=== PATIENT | female | born 1970 | race Caucasian/White ===

== ENCOUNTER 2024-08-24 09:47 | Observation (INO) ==
--- NOTE | 2024-08-24 10:01 | Emergency Department Note ---
Impression & Plan Acute right flank pain, UTI (urinary tract infection), Hypercalcemia ED Provider Note CHIEF COMPLAINT: Kidney stone HISTORY OF PRESENTING ILLNESS: This 54-year-old female patient presents emergency department for evaluation of a possible kidney stone. The patient thought she was getting a UTI because she started with urinary pressure yesterday. However, now she has blood in her urine as well as 2/10 right sided back pain. She does have a history of kidney stones. She denies any fevers. Denies nausea or vomiting. Denies chest pain or SOB compared to her baseline SOB with activity. Denies problems with her BMs. REVIEW OF SYSTEMS: See HPI for pertinent positives and pertinent negatives. ALLERGIES: NKDA MEDICATIONS: See below PAST MEDICAL HISTORY: See below PHYSICAL EXAM: VITALS: Vitals are noted on the nurse's note and reviewed by myself. GENERAL: Non toxic, in no acute distress, non-diaphoretic. SKIN: Capillary refill <2 sec. EYES: PERRLA. EOMI. Conjunctivae without injection, sclerae without icterus. NOSE: Patent without discharge. MOUTH: Mucous membranes moist. Uvula midline. Airway patent. NECK: Supple without nuchal rigidity. HEART: Regular rate and rhythm without murmurs gallops or rubs. LUNGS: Clear to auscultation bilaterally without wheezes, rales or rhonchi. No retractions or accessory muscle use. ABDOMEN: Positive bowel sounds x 4. Normal tympanic percussion. Soft, nontender to palpation. No masses or hepatosplenomegaly. Desouza sign negative. No CVA tenderness. No guarding, rigidity, or rebound tenderness. No focal RLQ or LLQ tenderness. NEURO: Patient was alert and oriented. No focal neurological deficits. DIFFERENTIAL DIAGNOSIS: Differential diagnosis includes hepatitis, pancreatitis, cholecystitis, cholelithiasis, appendicitis, kidney stone, pyelonephritis, UTI, gastritis, gastroenteritis, mesenteric adenitis, obstruction, constipation, hernia, abdominal abscess, perforation, diverticulitis, IBD, ischemic colitis, abdominal aortic aneurysm, , ectopic , ovarian cyst, ovarian torsion, acute salpingitis, or others. ED COURSE AND MEDICAL DECISION MAKING: MEDICATIONS GIVEN: 1 L normal saline solution bolus. Toradol 10 mg IV. Rocephin 2 g IV. MONITOR: Continuous school social worker: Order was placed for continuous school social worker. Patient was placed on the school social worker and continuous pulse ox. Patient was noted to be in normal sinus rhythm at an initial rate of 90 bpm per my interpretation. EKG: EKG was interpreted by myself as normal sinus rhythm at 87 bpm with no acute ST or T wave changes. INTERPRETATION OF LABS: I interpreted the labs with full lab results as below in the lab section of this note. Laboratory results pertinent to the emergent complaint are discussed in the MDM section below. The patient was advised to follow up with their PCP and/or specialist(s) for further outpatient monitoring and management of any abnormal results. INTERPRETATION OF IMAGING: Imaging studies were interpreted by myself and read by radiology as per the imaging section of this note. The patient was advised to follow up with their PCP and/or specialist(s) for further outpatient management of any non-emergent abnormal findings. CT scan of the abdomen and pelvis with IV contrast shows bladder wall thickening with adjacent stranding which could be related to cystitis. There is a duplicated right renal collecting system. Right nephrolithiasis, but no ureteral calculi or hydronephrosis. Hepatic steatosis. CONSULTATIONS: On-call hospitalist [facility] SUMMARY: I examined the patient. The patient started with urinary pressure and feeling like she had a UTI last night. She then noticed blood in her urine this morning as well as 2/10 right sided back pain. She has a history of kidney stones and became concerned. On exam, the patient has no abdominal tenderness to palpation or CVA tenderness, but states that she feels the pain in her right flank. An IV lock was placed and labs were drawn. The patient was given 1 L normal saline solution bolus and Toradol 10 mg IV with some improvement of her pain. White blood cell count elevated at 14.84. Hemoglobin normal at 15.9. Platelet count normal at 396. Glucose 166, calcium 12.2, AST 58, ALT 98, and alk phos 114. CMP otherwise normal. Magnesium normal. Lipase normal. Lactate and procalcitonin were normal. Urinalysis with 3+ protein, trace ketones, 3+ blood, 2+ leukocyte esterase, greater than 50 white blood cells, and greater than 20 red blood cells. No epithelial cells. Urine culture is pending. CT scan of the abdomen and pelvis with IV contrast shows bladder wall thickening with adjacent stranding which could be related to cystitis. There is a duplicated right renal collecting system. Right nephrolithiasis, but no ureteral calculi or hydronephrosis. Hepatic steatosis. The patient had infiltration of her IV site while getting the IV contrast dye. I examined the area and there is some inflammation, but she is not significantly tender to palpation. The patient was given a warm compress to place on the area. The patient was advised that she will need to watch this area closely for signs of infection or possible development of a blood clot. The patient's white blood cell count is elevated and she has right flank pain in addition to the cystitis and UTI. There is concern for possible early pyelonephritis that is not seen on CT scan. The patient had blood cultures drawn and she was given Rocephin 2 g IV. The patient also has apparent new onset hypercalcemia and states that she has not been told that she has had elevated calcium levels in the past. Upon review of our records, the patient had a calcium level of 11.3 in 2019, but no blood work in our system since that time. Her level today is 12.2. I had a meaningful discussion about this patient with Dr. Matos who agrees with my assessment and the treatment plan. Due to the concern for possible early pyelonephritis as well as new onset hypercalcemia, admission was discussed and the patient was agreeable. I spoke with the on-call hospitalist who agreed to admit the patient for further evaluation and treatment. Please refer to their dictation for further details. A PTH level and repeat calcium level were drawn at the same time and day Vitamin D level was obtained. These tests were still pending at the time of transfer of care. The patient's care was transferred in stable condition. DIAGNOSIS: Right flank pain with UTI and leukocytosis - concern for early pyelonephritis Hypercalcemia Past Med/Surg History Problem List (Updated 08/24/24 @ 18:42 by Lorie Stringer PA-C) Hypercalcemia (Acute) Acute right flank pain (Acute) UTI (urinary tract infection) (Acute) Calculus of right kidney Acid reflux Hypertension Right ureteral stone Medical History Acid reflux Hypertension Surgical History Hx of tonsillectomy Hx of tubal ligation Family History Mother Breast cancer Hypertension Brother Hypertension Social History Smoking Status: Never smoker Tobacco Type: Cigarettes Hx Alcohol Use: Yes Alcohol type: beer Hx Substance Use: Yes Last Used Substance: Days (ago) Preferred Language: Mohawk Communication Ability: Effective Current Living Situation: Significant Other Feels Safe at Home: Yes Safety Concerns: Feels Safe At This Time Assistive Devices: Glasses Allergies Allergies Allergy/AdvReac Type Severity Reaction Status Date / Time No Known Allergies Allergy Unverified 01/18/20 13:52 Home Meds Home Medications Medication Instructions Recorded Confirmed omeprazole 20 mg capsule,delayed 20 mg PO HS 01/12/20 08/24/24 release lisinopril 20 mg tablet 20 mg PO HS 08/24/24 08/24/24 sertraline 25 mg tablet 25 mg PO HS 08/24/24 08/24/24 spironolactone 25 mg tablet 25 mg PO HS 08/24/24 08/24/24 Results & Data (ED) Vital Signs Vital Signs - 24 hr 08/24/24 09:51 08/24/24 10:23 08/24/24 11:28 Temperature 36.8 C Temperature Source Oral Pulse Rate 101 H 100 H Respiratory Rate 18 18 Respiratory Effort / Characteristics Non-Labored Spontaneous Respiratory Depth Normal Respiratory Pattern Regular Blood Pressure 150/99 H 148/88 H Blood Pressure Mean 116 108 Pulse Oximetry 94 95 95 Oxygen Delivery Method Room Air Room Air Room Air Sepsis Recent Fever Within 48 Hours No Sepsis New/Unexplained Change in Mental Status No Sepsis Action Taken by Nursing No Action Required 08/24/24 13:39 Temperature Temperature Source Pulse Rate 86 Respiratory Rate Respiratory Effort / Characteristics Respiratory Depth Respiratory Pattern Blood Pressure Blood Pressure Mean Pulse Oximetry Oxygen Delivery Method Sepsis Recent Fever Within 48 Hours Sepsis New/Unexplained Change in Mental Status Sepsis Action Taken by Nursing Laboratory Data 08/24/24 10:05 08/24/24 10:05 Lab Results 08/24/24 Range/Units 10:05 WBC 14.84 H (4.8-10.8) K/ul RBC 5.31 (4.20-5.40) M/uL Hgb 15.9 (12.0-16.0) g/dl Hct 46.0 (37.0-47.0) % MCV 86.6 (80.0-100.0) fL MCH 29.9 (25.0-34.0) pg MCHC 34.6 (32.0-36.0) g/dL RDW Std Deviation 41.7 (36.4-46.3) fL RDW Coeff of [place] 13.2 (11.5-14.5) % Plt Count 396 (130-400) K/uL MPV 11.4 (9.4-12.4) fL Immature Gran % (Auto) 0.3 % Neut % (Auto) 75.3 % Lymph % (Auto) 18.3 % [place] % (Auto) 4.5 % Eos % (Auto) 1.2 % Baso % (Auto) 0.4 % Neut # (Auto) 11.17 H (1.40-6.50) K/uL Lymph # (Auto) 2.72 (1.20-3.40) K/uL [place] # (Auto) 0.67 H (0.11-0.59) K/uL Eos # (Auto) 0.18 (0.00-0.50) K/uL Baso # (Auto) 0.06 (0.00-0.20) K/uL Immature Gran # (Auto) 0.04 (0.01-0.20) K/uL Sodium 138 (136-145) mmol/L Potassium 4.1 (3.5-5.1) mmol/L Chloride 105 (98-107) mmol/L Carbon Dioxide 25 (21-32) mmol/L Anion Gap 8 (3-11) BUN 13 (6-23) mg/dl Creatinine 0.74 (0.6-1.2) mg/dl Est Cr Clr Drug Dosing 87.7 ml/min eGFR 97.29 BUN/Creatinine Ratio 17.6 (10-20) Glucose 166 H (70-99(Fasting)) mg/dl Calcium 12.2 H* (8.6-10.3) mg/dl Magnesium 1.7 (1.7-2.4) mg/dl Total Bilirubin 0.4 (0.2-1.0) mg/dl AST 58 H (13-39) U/L ALT 98 H (7-52) U/L Alkaline Phosphatase 114 H (34-104) U/L Total Protein 7.6 (6.0-8.3) gm/dl Albumin 4.7 (3.4-5.0) gm/dl Globulin 2.9 (2.5-4.0) gm/dl Albumin/Globulin Ratio 1.6 (0.9-2) Lipase 39 (11-82) U/L 25-OH Vitamin D Total 26.5 L (30-100) ng/ml Procalcitonin < 0.02 (0-0.5) ng/ml Urine Color Yellow Urine Appearance Cloudy A (Clear) Urine pH 6.5 (4.5-7.5) Ur Specific [place] 1.018 (1.000-1.030) Urine Protein 3+ H (Negative) Urine Glucose (UA) Negative (Negative) Urine Ketones Trace H (Negative) Urine Blood 3+ H (Negative) Urine Nitrite Negative (Negative) Urine Bilirubin Negative (Negative) Urine Urobilinogen Negative (Negative) Ur Leukocyte Esterase 2+ H (Negative) Urine WBC (Auto) >50 H (0-5) /hpf Urine RBC (Auto) >20 H (0-2) /hpf U Hyaline Cast (Auto) 0-2 (0-2) /lpf U Epithel Cells (Auto) 0-2 (0-2) /hpf Urine Bacteria (Auto) None Seen (None Seen) Urine Comment Administered Medications Enoxaparin Sodium (Enoxaparin Inj 40 Mg/0.4 Ml Syr) 40 mg SQ Q24H COOPER Stop: 09/23/24 15:59 Last Admin: 08/24/24 17:42 Dose: 40 mg Documented By: AISHA Parenteral Electrolytes (Plasma-Lyte A Ph 7.4) 1,000 mls @ 250 mls/hr IV .Q4H COOPER Stop: 08/24/24 21:31 Last Admin: 08/24/24 16:02 Dose: 250 mls/hr Documented By: AISHA Discontinued Medications Sodium Chloride (Nss) 1,000 mls @ 999 mls/hr IV .Q1H1M ONE Stop: 08/24/24 11:18 Last Infusion: 08/24/24 12:25 Dose: Infused Documented By: Admin: 08/24/24 10:29 Dose: 999 mls/hr Documented By: Ceftriaxone Sodium (Rocephin) 2,000 mg in 50 mls @ 100 mls/hr IV NOW STA Stop: 08/24/24 13:46 Last Infusion: 08/24/24 15:55 Dose: Infused Documented By: Admin: 08/24/24 14:37 Dose: 100 mls/hr Documented By: Ioversol (Optiray 320 100ml) 93 ml IV ONCE ONE Stop: 08/24/24 11:30 Last Admin: 08/24/24 11:31 Dose: 93 ml Documented By: ASTRID Ketorolac Tromethamine (Ketorolac Tromethamine 15 Mg/Ml Vial) 10 mg IV NOW ONE Stop: 08/24/24 10:19 Last Admin: 08/24/24 10:29 Dose: 10 mg Documented By: Imaging Data Radiologist's Impression: Abdomen/Pelvis CT 08/24/24 10:19 CT SCAN OF THE ABDOMEN AND PELVIS WITH IV CONTRAST CLINICAL HISTORY: Hematuria. Dysuria. Right flank pain. COMPARISON STUDY: CT of the abdomen and pelvis January 12, 2020. KUB July 30, 2020. TECHNIQUE: Following the IV administration of 93 cc of Optiray 320, CT scan of the abdomen and pelvis is performed from the lung bases to the proximal femora. Images are reviewed in the axial, sagittal, and coronal planes. IV contrast was administered without complication. A dose lowering technique was utilized adhering to the principles of ALARA. CT DOSE: 1421.86 mGy.cm FINDINGS: Visualized lung bases are unremarkable. There is no pneumatosis, free air or portal venous gas. Hepatic steatosis is noted. There are no hepatic lesions. There is no biliary or pancreatic ductal dilatation. Adrenal glands, left kidney and pancreas are unremarkable. 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 There are no ureteral calculi. There is no hydronephrosis. Several right renal calculi measure up to 8 mm. There is bladder wall thickening with adjacent stranding. There is no evidence for a bowel obstruction. There is no evidence for acute appendicitis. No lymphadenopathy is present. There are no fluid collections. Major vasculature is patent. IMPRESSION: 1. Right nephrolithiasis. No ureteral calculi or hydronephrosis. 2. Bladder wall thickening with adjacent stranding. This could be correlated with urinalysis to evaluate for cystitis. 3. Duplicated right collecting system. 4. Hepatic steatosis. ACT 112: Negative or not required by law. Electronically signed by: Mustapha Austin M.D. 08/24/2024 12:13 PM Discharge Plan Visit Data Chief Complaint: Kidney Stone Stated Complaint: KIDNEY STONES ED Provider: Danny Matos ED Midlevel Provider: Lorie Stringer Discharge Problem: Acute right flank pain, UTI (urinary tract infection), Hypercalcemia Patient Disposition: Admitted As Inpatient Condition: Fair Discharge Problem: UTI (urinary tract infection) Qualifiers: Urinary tract infection type: site unspecified Hematuria presence: with hematuria Qualified Code(s): N39.0 - Urinary tract infection, site not specified ; R31.9 - Hematuria, unspecified
[2024-08-24] MEDS: KETOROLAC TROMETHAMINE 15 MG/ML VIAL IV ONE (10:29)
[2024-08-24] MEDS: SODIUM CHLORIDE 0.9% 1,000 ML IV ONE (10:29)
[2024-08-24 10:57] LABS: Basophils # (auto) 0.06 K/uL (0.00-0.20); Basophils % (auto) 0.4 %; Eosinophils # (auto) 0.18 K/uL (0.00-0.50); Eosinophils % (auto) 1.2 %; Hemoglobin 15.9 g/dl (12.0-16.0); Immature Granulocytes # (auto) 0.04 K/uL (0.01-0.20); Immature Granulocytes % (auto) 0.3 %; Lymphocytes # (auto) 2.72 K/uL (1.20-3.40); Lymphocytes % (auto) 18.3 %; Mean Corpuscular Hemoglobin 29.9 pg (25.0-34.0); Mean Corpuscular Hgb Conc 34.6 g/dL (32.0-36.0); Mean Corpuscular Volume 86.6 fL (80.0-100.0); Mean Platelet Volume 11.4 fL (9.4-12.4); Monocytes # (auto) 0.67 K/uL (0.11-0.59); Monocytes % (auto) 4.5 %; Neutrophils # (auto) 11.17 K/uL (1.40-6.50); Neutrophils % (auto) 75.3 %; Platelet Count 396 K/uL (130-400); RDW Coefficient of Variation 13.2 % (11.5-14.5); RDW Standard Deviation 41.7 fL (36.4-46.3); Red Blood Count 5.31 M/uL (4.20-5.40); White Blood Count 14.84 K/ul (4.8-10.8)
[2024-08-24 11:02] LABS: Appearance Urine Cloudy (Clear); Bacteria Urine Automated None Seen (None Seen); Bilirubin Urine Negative (Negative); Blood Urine 3+ (Negative); Cast Urine Automated 0-2 /lpf (0-2); Color Urine Yellow; Epithelial Cell Urine Auto 0-2 /hpf (0-2); Glucose Urine UA Negative (Negative); Ketones Urine Trace (Negative); Leukocyte Esterase Urine 2+ (Negative); Nitrite Urine Negative (Negative); Protein Urine 3+ (Negative); RBC Urine Automated >20 /hpf (0-2); Specific Gravity Urine 1.018 (1.000-1.030); Urobilinogen Urine Negative (Negative); WBC Urine Automated >50 /hpf (0-5); pH Urine 6.5 (4.5-7.5)
[2024-08-24 11:19] LABS: Albumin Globulin Ratio 1.6 (0.9-2); BUN Creatinine Ratio 17.6 (10-20); Bilirubin,Total 0.4 mg/dl (0.2-1.0); Calcium 12.2 mg/dl (8.6-10.3); Creatinine Clr Calc Pharmacy 87.7 ml/min; Globulin 2.9 gm/dl (2.5-4.0); Potassium 4.1 mmol/L (3.5-5.1); Total Protein 7.6 gm/dl (6.0-8.3)
[2024-08-24] MEDS: OPTIRAY 320 100ml IV ONE (11:31)
[2024-08-24 11:52] LABS: Magnesium 1.7 mg/dl (1.7-2.4)
--- NOTE | 2024-08-24 12:15 | CT Scan Report ---
CT SCAN OF THE ABDOMEN AND PELVIS WITH IV CONTRAST CLINICAL HISTORY: Hematuria. Dysuria. Right flank pain. COMPARISON STUDY: CT of the abdomen and pelvis January 12, 2020. KUB July 30, 2020. TECHNIQUE: Following the IV administration of 93 cc of Optiray 320, CT scan of the abdomen and pelvis is performed from the lung bases to the proximal femora. Images are reviewed in the axial, sagittal, and coronal planes. IV contrast was administered without complication. A dose lowering technique was utilized adhering to the principles of ALARA. CT DOSE: 1421.86 mGy.cm FINDINGS: Visualized lung bases are unremarkable. There is no pneumatosis, free air or portal venous gas. Hepatic steatosis is noted. There are no hepatic lesions. There is no biliary or pancreatic duct al dilatation. Adrenal glands, left kidney and pancreas are unremarkable. Duplicated right renal gisselle ecting system is again noted. There are no ureteral calculi. There is no hydronephrosis. Several righ t renal calculi measure up to 8 mm. There is bladder wall thickening with adjacent stranding. There i s no evidence for a bowel obstruction. There is no evidence for acute appendicitis. No lymphadenopath y is present. There are no fluid collections. Major vasculature is patent. IMPRESSION: 1. Right nephrolithiasis. No ureteral calculi or hydronephrosis. 2. Bladder wall thickening with adjacent stranding. This could be correlated with urinalysis to evalu ate for cystitis. 3. Duplicated right collecting system. 4. Hepatic steatosis. ACT 112: Negative or not required by law. Electronically signed by: Mustapha Austin M.D. 08/24/2024 12:13 PM
--- NOTE | 2024-08-24 13:50 | History & Physical Report ---
Date of Service August 24, 2024 Assessment & Plan (1) UTI (urinary tract infection): Plan: 54-year-old female who presents for evaluation of hematuria and flank pain. Suspect UTI possible developing Gopal. Admitted for further evaluation of rising hypercalcemia without known history of parathyroid disease or malignancy Complicated UTI CTA/P with bladder thickening. No obstructive nephrolithiasis. Patient clinically has right flank pain suspicious for Gopal UA is with markedly high white blood cell count, blood, leukocyte esterase. No nitrites. UCx pending Continue Rocephin IV FM R supplement continued - No DANIA Hypercalcemia Calcium 12.2 on admission, repeat pending With volume contraction. No malignancy seen on CTA/P Vitamin D, PTH, repeat calcium pending Trend post fluids. Borderline hyperchloremia. Will use Plasma-Lyte 200 cc/h x 1.5 L. Additional workup based on chemistry results Calcium is not greater than 14, she is not significantly symptomatic. Bisphosphonate therapy deferred Follow calcium negative would add PTH SRP and consider expanding CT for malignancy screen. Hypertension Continue lisinopril/spironolactone likely slightly elevated in the setting of pain GERD Continue PPI Anxiety/depression Continue sertraline DVT prophylaxis: Lovenox Disposition: MSO CODE STATUS: Full code Diet: Heart healthy (2) Right ureteral stone: (3) Hypertension: (4) Acid reflux: History of Present Illness Primary Care Provider: Barron Aguiar 54-year-old female history of kidney stones who presents with right flank pain, dysuria, and hematuria concerning for UTI versus kidney stone. She is admitted for suspected complicated UTI/developing Goapl with additional evaluation of hypercalcemia without known malignancy or parathyroid disease Carlene is seen at the bedside. She has a past medical history of kidney stones. No personal history of cancer, does have a history of brain cancer in her mother possibly glioblastoma. Has a history of breast cancer in her family. Had a screening colonoscopy last year was reportedly normal and outside hospital. No known history of malignancy. She has felt generally tired and more weak for few weeks. She came in today because she had a large amount of blood in her urine similar with prior kidney stones and some mild right flank pain which has improved by time of bedside assessment. No fevers chills or sweats. No lightheadedness or dizziness. No chest pain or chest pressure. No difficulty breathing. Medical History: Reviewed Medications: Reviewed Surgical History: Reviewed Family history: Reviewed Allergies: Reviewed Social History: Reviewed. No tobacco/ETOH use Code Status: Full Allergies Allergy/AdvReac Type Severity Reaction Status Date / Time No Known Allergies Allergy Unverified 01/18/20 13:52 Home Medications Medication Instructions Recorded Confirmed Type omeprazole 20 mg capsule,delayed 20 mg PO HS 01/12/20 08/24/24 History release lisinopril 20 mg tablet 20 mg PO HS 08/24/24 08/24/24 History sertraline 25 mg tablet 25 mg PO HS 08/24/24 08/24/24 History spironolactone 25 mg tablet 25 mg PO HS 08/24/24 08/24/24 History Past Med/Surg History Problem List (Updated 08/24/24 @ 13:42 by Augie Shepherd MD) UTI (urinary tract infection) Calculus of right kidney Acid reflux Hypertension Right ureteral stone Medical History Acid reflux Hypertension Surgical History Hx of tonsillectomy Hx of tubal ligation Family History Mother Breast cancer Hypertension Brother Hypertension Social History Smoking Status: Current some day smoker Tobacco Type: Cigarettes Preferred Language: Faroese Feels Safe at Home: Yes Physical Exam Physical Exam: General: A&Ox3. NAD. Cooperative. HEENT: Atraumatic, normocephalic. Vision/hearing intact Pulm: CTAB A&P. -wheezes, -rales, -rhonchi. Symmetrical chest rise. No increased work of breathing. No respiratory distress. Cardiac: RRR, -mrg. Radial pulses intact and symmetrical. Abdominal: Nontender, nondistended, soft. BS present Mild R CVA tenderness. Ext: no edema. GRANT w/ conginital deformity. No new sensory/strength deficits Results & Data Results & Data Vital Signs (Past 12 Hours) Vital Signs Temp Pulse Resp BP Pulse Ox O2 Del Method 08/24/24 13:39 86 08/24/24 11:28 100 H 18 148/88 H 95 Room Air 08/24/24 10:23 95 Room Air 08/24/24 09:51 36.8 C 101 H 18 150/99 H 94 Room Air PG Care Time/CCT Total # of Minutes Spent Total Time Spent with Patient: Total time spent is greater than 50% in coordination of care (as documented) at patient's floor/unit and/or counseling patient: Coding Level of Care Code 14490 INT INP/OBS CARE 3/75MIN Diagnoses UTI (urinary tract infection) N39.0 Right ureteral stone N20.1 Hypertension I10 Acid reflux K21.9
[2024-08-24] MEDS: cefTRIAXone SODIUM 2,000 MG/50 ML BAG IV STA (14:37)
[2024-08-24] MEDS ORDERED: ACETAMINOPHEN 325 MG TAB PO PRN (15:32)
[2024-08-24] MEDS: PLASMA-LYTE A 1,000 ML IV SCH (16:02)
[2024-08-24] MEDS: ENOXAPARIN INJ 40 MG/0.4 ML SYR SQ SCH (17:42)
[2024-08-24] MEDS: SERTRALINE HCL 50 MG TABLET PO SCH (21:53)
[2024-08-24] MEDS: PANTOprazole 40 MG TAB PO SCH (21:54)
[2024-08-24] MEDS: lisinopril 20 MG TAB PO SCH (21:54)
[2024-08-24] MEDS: SPIRONOLACTONE 25 MG TAB PO SCH (21:54)
[2024-08-25 07:36] LABS: Basophils # (auto) 0.04 K/uL (0.00-0.20); Basophils % (auto) 0.5 %; Eosinophils # (auto) 0.16 K/uL (0.00-0.50); Eosinophils % (auto) 2.1 %; Hematocrit (blood only) 43.2 % (37.0-47.0); Hemoglobin 14.1 g/dl (12.0-16.0); Immature Granulocytes # (auto) 0.02 K/uL (0.01-0.20); Immature Granulocytes % (auto) 0.3 %; Lymphocytes # (auto) 2.12 K/uL (1.20-3.40); Lymphocytes % (auto) 27.8 %; Mean Corpuscular Hemoglobin 28.6 pg (25.0-34.0); Mean Corpuscular Hgb Conc 32.6 g/dL (32.0-36.0); Mean Corpuscular Volume 87.6 fL (80.0-100.0); Mean Platelet Volume 11.3 fL (9.4-12.4); Monocytes # (auto) 0.44 K/uL (0.11-0.59); Monocytes % (auto) 5.8 %; Neutrophils # (auto) 4.85 K/uL (1.40-6.50); Neutrophils % (auto) 63.5 %; Platelet Count 279 K/uL (130-400); RDW Coefficient of Variation 13.2 % (11.5-14.5); RDW Standard Deviation 42.5 fL (36.4-46.3); Red Blood Count 4.93 M/uL (4.20-5.40); White Blood Count 7.63 K/ul (4.8-10.8)
[2024-08-25 07:37] VITALS: BP 150/95; PULSE 83; RESP 18; TEMP 97.7; O2SAT 94
[2024-08-25 07:58] LABS: BUN Creatinine Ratio 15.9 (10-20); Calcium 10.7 mg/dl (8.6-10.3); Creatinine Clr Calc Pharmacy 103.6 ml/min; Potassium 4.2 mmol/L (3.5-5.1)
[2024-08-25 09:57] LABS: Bilirubin,Total 0.4 mg/dl (0.2-1.0); Total Protein 6.4 gm/dl (6.0-8.3)
[2024-08-25] MEDS ORDERED: Nursing to Pharmacy Communication SCH (11:00)
--- NOTE | 2024-08-25 11:04 | Discharge Summary ---
"Discharge Summary Date of Service August 25, 2024 Principal Dx & Hospital Course #1 = Principal Diagnosis (1) UTI (urinary tract infection): (2) Right ureteral stone: (3) Hypertension: (4) Acid reflux: Plan #Hypercalemia | Hyperparathyroidism 54-year-old female who presents for evaluation of hematuria and flank pain. Suspect UTI possible developing Pyelo. Also found to be hypercalcemic at 12.2. Admitted for further evaluation of rising hypercalcemia without known history of parathyroid disease or malignancy. Calcium level downtrending with IVF. Calcium 10.7 day of discharge, but did have elevations back in 2019. Asymptomatic. PTH level elevated, suspect primary hyperthyroidism. No evidence of malignancy on CT A/P. Vit D level low normal. Outpatient referral to endocrinology, repeat CMP in one week ordered. Encourage hydration Complicated UTI CTA/P with bladder thickening. No obstructive nephrolithiasis. Patient clinically has right flank pain suspicious for Pyelo. UC with Group B strep. Symptoms largely improved. received Ceftriaxone, will discharge on continued course of Augmentin. #Transaminitis Mild and down trending on day of discharge. fatty liver on CT. Trend with outpatient labs #Hypertension Continue lisinopril/spironolactone #GERD Continue PPI. Avoid Tums #Anxiety/depression Continue sertraline Dispo: discharge to home today with endocrinology follow up Notes For Next Care Provider outpatient endocrinology referral placed CMP ordered for next week Medication Changes From Visit Augmentin BID x 5 days Admission HPI Per Admitting Provider 54-year-old female history of kidney stones who presents with right flank pain, dysuria, and hematuria concerning for UTI versus kidney stone. She is admitted for suspected complicated UTI/developing Gopal with additional evaluation of hypercalcemia without known malignancy or parathyroid disease Carlene is seen at the bedside. She has a past medical history of kidney stones. No personal history of cancer, does have a history of brain cancer in her mother possibly glioblastoma. Has a history of breast cancer in her family. Had a screening colonoscopy last year was reportedly normal and outside hospital. No known history of malignancy. She has felt generally tired and more weak for few weeks. She came in today because she had a large amount of blood in her urine similar with prior kidney stones and some mild right flank pain which has improved by time of bedside assessment. No fevers chills or sweats. No lightheadedness or dizziness. No chest pain or chest pressure. No difficulty breathing. Medical History: Reviewed Medications: Reviewed Surgical History: Reviewed Family history: Reviewed Allergies: Reviewed Social History: Reviewed. No tobacco/ETOH use Code Status: Full Discharge Exam General: NAD, VS as above Resp: normal respiratory effort, lungs clear to auscultation CV: RRR, no murmur, Abd: normal bowel sounds, non tender, no hepatosplenomegaly Extremities: Moves all extremities, no edema Neuro: A&O x3, Discharge Plan Discharge Items Patient Disposition: Home - Self-Care Reason For Visit: hypercalcemia Discharge Diagnosis: hyperparathyroidism, UTI/possible pyelo Condition on Discharge: Fair Activity: Resume your previous activity Driving/Machine Use: No limitations Weightbearing: Full weightbearing Non-emergency contact: Primary Care Provider Call non-emergency contact if: you have any medication questions, your symptoms worsen, your pain is worsening and your temperature is above 101 Follow-up/Referrals: Zoran Santacruz MD [Physician] - (new patient - hyperparathyroidisim) Barron Aguiar [Primary Care Provider] - 08/30/24 11:00 am (Follow up within one week - with blood work (CMP)) Diet: Regular Ambulatory Orders: Comprehensive Metabolic Panel (Routine) Timeframe: [id number] Location: Determined by Patient Ordered By: Mindi Parisi Attending Provider Instructions: Ms. Wadsworth, You were hospitalized after having blood in your urine, found to be from a urinary tract infection. This was treated with antibiotics and your symptoms have improved. You will be continued on Augmentin - first dose AM 08/26, this will be continued for 5 days, please take with food. You were also found to have high calcium levels. They have decreased with IV fluids, but still remain elevated. This is likely from a condition called hyperparathyroidism - for this you will be referred to endocrinology. Their information is above, if you do not hear from their office by Wednesday please give them a call. Make sure you are staying hydrated and if you are taking a multivitamin that it does not contain extra calcium. If you are having heart burn do NOT take tums, please use pepcid or protonix. You also need repeat labs, since you will be having them drawn at [facility] and will be following up with endocrinology, I have ordered these for you. The results will also go to your PCP. Please have these drawn Wednesday or next week. I have attached information about hyperparathyroidism, hypercalcemia and signs and symptoms to look out for. You have blood cultures pending at the time of discharge. If they turn positive you will be notified, you can also check in with your PCP or the [facility] portal. However, given your symptoms I do not expect they will be positive. No changes to your medications. Activity: You can do normal everyday activities as your body allows. Take rest breaks if you feel tired. Do not overexert. Stop activity if you have pain, shortness of breath or feel dizzy. Follow-up appointments: Make an appointment with your primary care physician within one week of discharge. A copy of this summary will be sent to them. Every time you see your primary care physician, or any other doctor, bring your medication list, and a list of questions. CONTACT YOUR PRIMARY CARE PROVIDER if you experience any of the following: Shortness of breath or difficulty breathing Fevers or chills Feeling tired with normal activity or experiencing dizziness or fainting Difficulty following your treatment plan, or difficulty taking medications CALL 911 OR GO TO THE EMERGENCY DEPARTMENT if you experience any of the following: Severe abdominal pain or nausea/vomiting Severe chest pain, or chest pain that radiates (moves) to your jaw or arm Sudden, severe shortness of breath or difficulty breathing Thank you for allowing us to participate in your care. Pending Studies at Discharge: Yes Stand-Alone Forms: My [facility] [employer], Smoking Cessation Medications and DC Order Prescriptions: New amoxicillin-pot clavulanate 875-125 mg tablet 1 tab PO BID Qty: 10 0RF Rx Instructions: first dose AM 6/7 Continued omeprazole 20 mg capsule,delayed release(DR/EC) 20 mg PO HS lisinopril 20 mg tablet 20 mg PO HS spironolactone 25 mg tablet 25 mg PO HS sertraline 25 mg tablet 25 mg PO HS Discharge Orders: Discharge Order (Routine); Ordered 08/25/24 Ordered By: Mindi Lockhart/Other Patient Handouts: Hyperparathyroidism Primary, Hypercalcemia Dc Admission Data Admit Date/Time: 08/24/24 13:48 Attending Provider: Angie Payne Admit Provider: Efe Marroquin Primary Care Provider: Barron Aguiar Other Providers: Augie Shepherd Other Interventions: Discharge Summary Assessment (RN) Last Done: 08/25/24 11:42 Hospital Stay Data Consultations 08/24/24 13:46 ED Decision to Admit Stat Diagnostic Imagining Performed Abdomen/Pelvis CT 08/24/24 10:19 CT SCAN OF THE ABDOMEN AND PELVIS WITH IV CONTRAST CLINICAL HISTORY: Hematuria. Dysuria. Right flank pain. COMPARISON STUDY: CT of the abdomen and pelvis January 12, 2020. KUB July 30, 2020. TECHNIQUE: Following the IV administration of 93 cc of Optiray 320, CT scan of the abdomen and pelvis is performed from the lung bases to the proximal femora. Images are reviewed in the axial, sagittal, and coronal planes. IV contrast was administered without complication. A dose lowering technique was utilized adhe ring to the principles of ALARA. CT DOSE: 1421.86 mGy.cm FINDINGS: Visualized lung bases are unremarkable. There is no pneumatosis, free air or portal venous gas. Hepatic steatosis is noted. There are no hepatic lesions. There is no biliary or pancreatic ductal dilatation. Adrenal glands, left kidney and pancreas are unremarkable. 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 There are no ureteral calculi. There is no hydronephrosis. Several right renal calculi measure up to 8 mm. There is bladder wall thickening with adjacent stranding. There is no evidence for a bowel obstruction. There is no evidence for acute appendicitis. No lymphadenopathy is present. There are no fluid collections. Major vasculature is patent. IMPRESSION: 1. Right nephrolithiasis. No ureteral calculi or hydronephrosis. 2. Bladder wall thickening with adjacent stranding. This could be correlated with urinalysis to evaluate for cystitis. 3. Duplicated right collecting system. 4. Hepatic steatosis. ACT 112: Negative or not required by law. Electronically signed by: Mustapha Austin M.D. 08/24/2024 12:13 PM Pending Results Patient Have Any Pending Studies at Discharge: Yes Discharge Instructions Given to Patient (Per Discharging Provider) Ms. Wadsworth, You were hospitalized after having blood in your urine, found to be from a urinary tract infection. This was treated with antibiotics and your symptoms have improved. You will be continued on Augmentin - first dose AM 6/7, this will be continued for 5 days, please take with food. You were also found to have high calcium levels. They have decreased with IV fluids, but still remain elevated. This is likely from a condition called hyperparathyroidism - for this you will be referred to endocrinology. Their information is above, if you do not hear from their office by Wednesday please give them a call. Make sure you are staying hydrated and if you are taking a multivitamin that it does not contain extra calcium. If you are having heart burn do NOT take tums, please use pepcid or protonix. You also need repeat labs, since you will be having them drawn at [facility] and will be following up with endocrinology, I have ordered these for you. The results will also go to your PCP. Please have these drawn Wednesday or next week. I have attached information about hyperparathyroidism, hypercalcemia and signs and symptoms to look out for. You have blood cultures pending at the time of discharge. If they turn positive you will be notified, you can also check in with your PCP or the [facility] portal. However, given your symptoms I do not expect they will be positive. No changes to your medications. Activity: You can do normal everyday activities as your body allows. Take rest breaks if you feel tired. Do not overexert. Stop activity if you have pain, shortness of breath or feel dizzy. Follow-up appointments: Make an appointment with your primary care physician within one week of discharge. A copy of this summary will be sent to them. Every time you see your primary care physician, or any other doctor, bring your medication list, and a list of questions. CONTACT YOUR PRIMARY CARE PROVIDER if you experience any of the following: Shortness of breath or difficulty breathing Fevers or chills Feeling tired with normal activity or experiencing dizziness or fainting Difficulty following your treatment plan, or difficulty taking medications CALL 911 OR GO TO THE EMERGENCY DEPARTMENT if you experience any of the following: Severe abdominal pain or nausea/vomiting Severe chest pain, or chest pain that radiates (moves) to your jaw or arm Sudden, severe shortness of breath or difficulty breathing Thank you for allowing us to participate in your care. Supervising Physician Co-Signing Physician Notes CHARMAINE Supervision Note: I did not personally see or examine the patient today, but I verified all rizzo points of CHARMAINE Hilario's assessment and plan with the following exceptions/additions: None Total Time Total Time Spent Total Time Spent (In Minutes): Time spent day of discharge 36 minutes including direct patient care, medication reconciliation, documentation, review of labs and images, and coordination of care. Coding Level of Care Code 94552 INP/OBS DISCH >30 MIN Diagnoses UTI (urinary tract infection) N39.0; R31.9 Hematuria presence: with hematuria Urinary tract infection type: site unspecified Right ureteral stone N20.1 Hypertension I10 Acid reflux K21.9"
[2024-08-25] MEDS: cefTRIAXone SODIUM 2,000 MG/50 ML BAG IV SCH (11:18)
--- NOTE | 2024-08-25 22:52 | Electrocardiogram Report ---
Test Reason : Blood Pressure : */* mmHG Vent. Rate : 87 BPM Atrial Rate : 87 BPM P-R Int : 168 ms QRS Dur : 64 ms QT Int : 340 ms P-R-T Axes : 30 29 26 degrees QTcB Int : 409 ms Normal sinus rhythm Low voltage QRS Borderline ECG When compared with ECG of 26-Nov-2020 19:28, No significant change Confirmed by Norman Royal ([id number]) on 08/25/2024 10:51:56 PM Referred By: REFERRED SELF Confirmed By: Norman Royal
== END 2024-08-25 13:31 | disposition home or self-care (01) | DRG 690 ==
LOC: 3W 09:47 → ED 09:47 → INTOOBSV 13:48 → SUATTDRO 15:25 → OBSVTOIN 15:25 → 3W 18:45